=== PATIENT | female | born 1995 | race Caucasian/White ===

== ENCOUNTER 2018-08-08 22:17 | Emergency (ER) | payer OTHER ==
[~2018-08-08] VITALS: Ht 157.5 cm; Wt 71.7 kg
[2018-08-08] MEDS ORDERED: PRENATABS RX T1 EACH (22:39)
[2018-08-09] MEDS ORDERED: BENADRYL25 MG PO (03:13)
== END 2018-08-09 03:41 | disposition home or self-care (01) ==
LOC: ER 22:17 → EDBD 22:28 → ER 08-09 03:41
DX: O23.591 Infection of other part of genital tract in pregnancy, first trimester (principal); Z34.01 Encounter for supervision of normal first pregnancy, first trimester

== ENCOUNTER 2018-08-15 12:27 | Emergency (ER) | payer OTHER ==
[~2018-08-15] VITALS: Ht 160 cm; Wt 71.7 kg
[~2018-08-15 12:27] MED LIST: BENADRYL25 MG PO; PRENATABS RX T1 EACH
[2018-08-15] MEDS ORDERED: B-COMPLEX WIT400 MC1 PO (12:43)
[2018-08-15] MEDS ORDERED: ZOFRAN8 MG PO (15:49)
== END 2018-08-15 16:24 | disposition home or self-care (01) ==
LOC: ER 12:27
DX: O21.0 Mild hyperemesis gravidarum (principal); Z34.82 Encounter for supervision of other normal pregnancy, second trimester

== ENCOUNTER 2018-09-03 13:20 | Emergency (ER) | payer OTHER ==
[~2018-09-03] VITALS: Ht 157.5 cm; Wt 69.4 kg
[~2018-09-03 13:20] MED LIST changes: +B-COMPLEX WIT400 MC1 PO; +ZOFRAN8 MG PO
== END 2018-09-03 21:21 | disposition home or self-care (01) ==
LOC: ER 13:20
DX: O99.611 Diseases of the digestive system complicating pregnancy, first trimester (principal); K52.89 Other specified noninfective gastroenteritis and colitis; O26.891 Other specified pregnancy related conditions, first trimester; M94.0 Chondrocostal junction syndrome [Tietze]; Z34.01 Encounter for supervision of normal first pregnancy, first trimester

== ENCOUNTER 2018-10-10 15:49 | Inpatient (IN) | payer OTHER ==
[~2018-10-10] VITALS: Ht 157.5 cm; Wt 68.0 kg
== END 2018-10-12 09:33 | disposition home or self-care (01) | DRG 833 ==
LOC: OB/GYN 15:49
PROC: 4A1HXCZ Monitoring of Products of Conception, Cardiac Rate, External Approach (ICD-10-PCS; principal; 2018-10-10)
DX: O21.0 Mild hyperemesis gravidarum (principal)

== ENCOUNTER 2019-02-19 12:23 | Outpatient (CLI) | payer OTHER | END 2019-02-19 13:20 | disposition home or self-care (01) | LOC: NST 12:23 | DX: Z34.83 Encounter for supervision of other normal pregnancy, third trimester (principal) ==

== ENCOUNTER 2019-03-15 14:30 | Inpatient (IN) | payer OTHER ==
[~2019-03-15] VITALS: Ht 157.5 cm; Wt 78.0 kg
[2019-04-04] MEDS ORDERED: OBSTETRIX DHA1 EACH PO (17:20)
== END 2019-04-08 10:15 | disposition home or self-care (01) | DRG 788 ==
LOC: OB/GYN 03-31 14:30 → LDR 04-04 15:52 → OB/GYN 04-05 18:54
PROVIDERS: ADMIT Obstetrics & Gynecology
PROC: 4A0HXFZ Measurement of Products of Conception, Cardiac Rhythm, External Approach (ICD-10-PCS; 2019-04-04)
PROC: 3E033VJ Introduction of Other Hormone into Peripheral Vein, Percutaneous Approach (ICD-10-PCS; 2019-04-05)
PROC: 10D00Z1 Extraction of Products of Conception, Low, Open Approach (ICD-10-PCS; principal; 2019-04-05 17:00)
DX: O82 Encounter for cesarean delivery without indication (principal); Z3A.39 39 weeks gestation of pregnancy; Z37.0 Single live birth

== ENCOUNTER 2019-03-22 14:52 | Outpatient (CLI) | payer OTHER | END 2019-03-22 15:30 | disposition home or self-care (01) | LOC: NST 14:52 | DX: Z34.83 Encounter for supervision of other normal pregnancy, third trimester (principal) ==

== ENCOUNTER 2019-04-01 12:21 | Outpatient (CLI) | payer OTHER | END 2019-04-01 13:33 | disposition home or self-care (01) | LOC: NST 12:21 | DX: Z34.83 Encounter for supervision of other normal pregnancy, third trimester (principal) ==

== ENCOUNTER 2020-08-07 06:43 | Day surgery (SDC) | payer OTHER ==
[~2020-08-07 06:43] MED LIST changes: +OBSTETRIX DHA1 EACH PO
== END 2020-08-07 12:45 | disposition home or self-care (01) ==
LOC: AMB-ENDOS 06:43
PROVIDERS: ATTEND Colon & Rectal Surgery
DX: D13.1 Benign neoplasm of stomach (principal); K44.9 Diaphragmatic hernia without obstruction or gangrene; Z20.828 Contact with and (suspected) exposure to other viral communicable diseases